=== PATIENT | male | born 1945 | race Caucasian/White ===

== ENCOUNTER 2017-02-26 07:04 | Day surgery (SDC) | payer MEDICARE, BC ==
[~2017-02-26] VITALS: Ht 167.6 cm; Wt 90.7 kg
[~2017-02-26 07:04] MED LIST: ASPIRIN325 MG PO; FOLIC ACID1 M1 PO; LISINOPRIL10 MG PO; LOFIBRA200 MG PO; LORTAB 7.57.5 MG PO; LOVASTATIN40 MG PO; PRILOSEC20 MG PO; VITAMIN B-12500 MCG PO; VITAMIN D400 UNI1 PO; ZYRTEC10 MG PO
[2017-02-26 10:44] VITALS: BP 115/64
== END 2017-02-26 10:35 | disposition home or self-care (01) ==
LOC: ENDO 07:04
PROVIDERS: ATTEND Surgery
PROC: 0DJD8ZZ Inspection of Lower Intestinal Tract, Via Natural or Artificial Opening Endoscopic (ICD-10-PCS; principal; 2017-02-26)
DX: Z12.11 Encounter for screening for malignant neoplasm of colon (principal); I10 Essential (primary) hypertension; E78.5 Hyperlipidemia, unspecified